=== PATIENT | female | born 1940 | race Caucasian/White ===

== ENCOUNTER → 2017-05-24 | Outpatient (CLI) | payer OTHER ==
[~2017-05-24] MED LIST: ASPI81CH PO; Albuterol2.5 MG/0.5 INH; CHOL10002; GLIP10ER PO; IRON150C PO; LOSA25 PO; METF500 PO; MONT10T PO; PIOG30 PO; RANI150 PO; SIMV40 PO; Zithromax250 MG PO
== END | disposition home or self-care (01) ==
LOC: PLD 11:24 → LAB SHORT 11:24
DX: D22.5 Melanocytic nevi of trunk (principal); L82.1 Other seborrheic keratosis
CPT/HCPCS: 88305

== ENCOUNTER → 2018-12-03 | Outpatient (CLI) | payer OTHER | END | disposition home or self-care (01) | LOC: PLD 12:12 → LAB SHORT 12:12 | DX: L81.4 Other melanin hyperpigmentation (principal); B88.9 Infestation, unspecified | CPT/HCPCS: 88305 ==

== ENCOUNTER → 2020-11-12 | Outpatient (CLI) | payer OTHER ==
[~2020-11-12] MED LIST changes: +IBUP600 PO; +Robaxin-750750 MG PO; +TRAM50 PO
[2020-11-12 16:35] LABS: Appearance, Urine Clear (Clear); Bilirubin, Urine Neg (Neg); Blood, Urine Neg (Neg); Color, Urine Yellow (P-Yellow); Creatinine, Urine Random 97.8 mg/dL (27.00-270.00); Glucose Qualitative, Urine Neg (Neg); Ketones, Urine Neg (Neg); Leukocyte Esterase, Urine 3+ (Neg); Nitrite, Urine Neg (Neg); Protein, Urine 2+ (Neg); Protein, Urine Random 47.3 mg/dL (0.0-11.9); Protein/Creat Ratio, Ur Random 0.5; Urobilinogen, Urine NORM (Normal)
[2020-11-12 18:18] LABS: Bacteria Mod /hpf; Red Blood Cells, Urine 0-2 /hpf (0-2); Squamous Epithelial Cells Few /hpf (Few)
== END ==
LOC: LAB SHORT 11:17
PROVIDERS: Internal Medicine
DX: N18.31 Chronic kidney disease, stage 3a (principal); Z91.013 Allergy to seafood
CPT/HCPCS: 81001; 82570; 84156

== ENCOUNTER 2021-11-11 07:08 | Day surgery (SDC) | payer OTHER ==
[~2021-11-11] VITALS: Ht 149.9 cm; Wt 72.7 kg
[~2021-11-11 07:08] MED LIST changes: +LORA10ER PO
[2021-11-11] MEDS ORDERED: ACET325 (07:41)
--- NOTE | 2021-11-11 07:47 | NUR ---
11/11/21 0747 Stephani Dewey AT 0734 PLEDGET AT 0719
== END 2021-11-11 09:20 | disposition home or self-care (01) ==
LOC: ORSCSDS 07:08
PROVIDERS: Ophthalmology
PROC: 08RK3JZ Replacement of Left Lens with Synthetic Substitute, Percutaneous Approach (ICD-10-PCS; principal; 2021-11-11 08:30)
DX: H25.12 Age-related nuclear cataract, left eye (principal); Z96.1 Presence of intraocular lens; Z87.891 Personal history of nicotine dependence; E11.22 Type 2 diabetes mellitus with diabetic chronic kidney disease; I12.9 Hypertensive chronic kidney disease with stage 1 through stage 4 chronic kidney disease, or unspecified chronic kidney disease; E11.36 Type 2 diabetes mellitus with diabetic cataract; N18.9 Chronic kidney disease, unspecified; E78.5 Hyperlipidemia, unspecified; Z86.73 Personal history of transient ischemic attack (TIA), and cerebral infarction without residual deficits; Z79.82 Long term (current) use of aspirin; Z79.84 Long term (current) use of oral hypoglycemic drugs; Z79.899 Other long term (current) drug therapy
CPT/HCPCS: 82947; J2001; J2250; J3010; J3301; J7040; V2632

== ENCOUNTER 2021-12-08 20:40 | Emergency (ER) | payer OTHER ==
[~2021-12-08] VITALS: Ht 149.9 cm; Wt 117.9 kg
[~2021-12-08 20:40] MED LIST changes: +ACET325
[2021-12-08 21:13] LABS: BASOPHILS ABSOLUTE AUTO 0.04 K/mm3 (0.00-0.23); BASOPHILS PERCENT AUTO 1 % (0-2); EOSINOPHILS ABSOLUTE AUTO 0.07 K/mm3 (0.00-0.68); EOSINOPHILS PERCENT AUTO 1 % (0-6); Hematocrit 31.7 % (33.0-51.0); Hemoglobin 10.1 g/dL (11.5-16.0); IMMATURE GRAN ABSOLUTE AUTO 0.01 K/mm3 (0.00-0.10); IMMATURE GRAN PERCENT AUTO 0 % (0-1); LYMPHOCYTES ABSOLUTE AUTO 2.01 K/mm3 (0.84-5.20); LYMPHOCYTES PERCENT AUTO 28 % (21-46); MONOCYTES ABSOLUTE AUTO 0.84 K/mm3 (0.16-1.47); MONOCYTES PERCENT AUTO 12 % (4-13); Mean Corpuscular HGB 29.1 pg (26.0-34.0); Mean Corpuscular HGB Conc 31.9 g/dL (31.5-36.5); Mean Corpuscular Volume 91 fL (80-100); Mean Platelet Volume 11.9 fL (9.1-12.4); NEUTROPHILS ABSOLUTE AUTO 4.26 K/mm3 (1.96-9.15); NEUTROPHILS PERCENT AUTO 59 % (41-73); Platelet Count 229 K/mm3 (150-400); RDW Coefficient Variation 13.1 % (11.7-14.2); RDW Standard Deviation 43.7 fL (35.1-46.3); Red Blood Cell Count 3.47 M/mm3 (3.80-5.20); White Blood Cell Count 7.23 K/mm3 (4.00-11.30)
[2021-12-08 21:36] LABS: Albumin, Blood 3.5 g/dL (3.4-5.0); Albumin/Globulin Ratio 0.9 (0.8-1.8); Bilirubin, Total 0.3 mg/dL (0.1-1.0); Bun/Creatinine Ratio 15.4 (12.0-20.0); Calcium, Blood 8.7 mg/dL (8.5-10.1); Creatinine, Blood 1.17 mg/dL (0.40-1.00); Globulin, Blood 3.8 g/dL (2.2-4.0); Potassium, Blood 4.3 mmol/L (3.5-5.5); Total Protein, Blood 7.3 g/dL (6.4-8.2)
[2021-12-09] MEDS ORDERED: FOSAMAX70 MG PO (16:30)
== END 2021-12-08 23:49 | disposition home or self-care (01) ==
LOC: ER 20:40
PROVIDERS: Emergency Medicine
DX: I10 Essential (primary) hypertension (principal); Z91.013 Allergy to seafood; Z79.899 Other long term (current) drug therapy; Z79.82 Long term (current) use of aspirin; Z79.84 Long term (current) use of oral hypoglycemic drugs; E11.9 Type 2 diabetes mellitus without complications; Z86.73 Personal history of transient ischemic attack (TIA), and cerebral infarction without residual deficits
CPT/HCPCS: 36415; 80053; 84484; 85025

== ENCOUNTER 2021-12-09 13:30 | Emergency (ER) | payer OTHER ==
[~2021-12-09] VITALS: Ht 149.9 cm; Wt 72.6 kg
[2021-12-09 14:12] LABS: BASOPHILS ABSOLUTE AUTO 0.02 K/mm3 (0.00-0.23); BASOPHILS PERCENT AUTO 0 % (0-2); EOSINOPHILS ABSOLUTE AUTO 0.04 K/mm3 (0.00-0.68); EOSINOPHILS PERCENT AUTO 1 % (0-6); Hemoglobin 10.2 g/dL (11.5-16.0); IMMATURE GRAN ABSOLUTE AUTO 0.01 K/mm3 (0.00-0.10); IMMATURE GRAN PERCENT AUTO 0 % (0-1); LYMPHOCYTES ABSOLUTE AUTO 1.67 K/mm3 (0.84-5.20); LYMPHOCYTES PERCENT AUTO 30 % (21-46); MONOCYTES ABSOLUTE AUTO 0.64 K/mm3 (0.16-1.47); MONOCYTES PERCENT AUTO 12 % (4-13); Mean Corpuscular HGB 28.8 pg (26.0-34.0); Mean Corpuscular HGB Conc 31.9 g/dL (31.5-36.5); Mean Corpuscular Volume 90 fL (80-100); Mean Platelet Volume 12.1 fL (9.1-12.4); NEUTROPHILS ABSOLUTE AUTO 3.17 K/mm3 (1.96-9.15); NEUTROPHILS PERCENT AUTO 57 % (41-73); Platelet Count 230 K/mm3 (150-400); RDW Coefficient Variation 12.9 % (11.7-14.2); RDW Standard Deviation 43.4 fL (35.1-46.3); Red Blood Cell Count 3.54 M/mm3 (3.80-5.20); White Blood Cell Count 5.55 K/mm3 (4.00-11.30)
[2021-12-09 14:34] LABS: Albumin, Blood 3.4 g/dL (3.4-5.0); Albumin/Globulin Ratio 0.9 (0.8-1.8); Bilirubin, Total 0.3 mg/dL (0.1-1.0); Bun/Creatinine Ratio 13.3 (12.0-20.0); Creatinine, Blood 0.98 mg/dL (0.40-1.00); Globulin, Blood 3.7 g/dL (2.2-4.0); Potassium, Blood 4.2 mmol/L (3.5-5.5); Total Protein, Blood 7.1 g/dL (6.4-8.2)
[2021-12-09] MEDS ORDERED: FOSAMAX70 MG PO (16:30)
== END 2021-12-09 19:39 | disposition home or self-care (01) ==
LOC: ER 13:30
PROVIDERS: Physician Assistant
DX: I10 Essential (primary) hypertension (principal); E11.9 Type 2 diabetes mellitus without complications; Z79.899 Other long term (current) drug therapy; Z79.82 Long term (current) use of aspirin; Z79.84 Long term (current) use of oral hypoglycemic drugs; Z91.013 Allergy to seafood; Z87.891 Personal history of nicotine dependence
CPT/HCPCS: 36415; 70496; 70498; 71046; 80053; 84484; 85025; 93005; 93010; Q9967

== ENCOUNTER → 2022-03-10 | Outpatient (CLI) | payer OTHER ==
[~2022-03-10] MED LIST changes: +FOSAMAX70 MG PO
== END ==
LOC: LAB SHORT 10:07 → LAB 10:07 → PLD 10:07
DX: D48.5 Neoplasm of uncertain behavior of skin (principal)
CPT/HCPCS: 88305

== ENCOUNTER → 2022-07-06 | Outpatient (CLI) | payer OTHER | LOC: LAB 11:19 → LAB SHORT 11:19 → PLD 11:19 | DX: D48.5 Neoplasm of uncertain behavior of skin (principal) | CPT/HCPCS: 88305 ==

== ENCOUNTER 2024-11-10 00:48 | Emergency (ER) | payer OTHER ==
[~2024-11-10] VITALS: Ht 172.7 cm; Wt 90.7 kg
[2024-11-10] MEDS ORDERED: Ketorolac Tromethamine 15mg Vial IV ONE (04:00)
[2024-11-10 04:31] LABS: BASOPHILS ABSOLUTE AUTO 0.03 K/mm3 (0.00-0.23); BASOPHILS PERCENT AUTO 0 % (0-2); EOSINOPHILS ABSOLUTE AUTO 0.00 K/mm3 (0.00-0.68); EOSINOPHILS PERCENT AUTO 0 % (0-6); Hematocrit 32.2 % (33.0-51.0); Hemoglobin 10.5 g/dL (11.5-16.0); IMMATURE GRAN ABSOLUTE AUTO 0.02 K/mm3 (0.00-0.10); IMMATURE GRAN PERCENT AUTO 0 % (0-1); LYMPHOCYTES ABSOLUTE AUTO 0.57 K/mm3 (0.84-5.20); LYMPHOCYTES PERCENT AUTO 7 % (21-46); MONOCYTES ABSOLUTE AUTO 0.51 K/mm3 (0.16-1.47); MONOCYTES PERCENT AUTO 6 % (4-13); Mean Corpuscular HGB Conc 32.6 g/dL (31.5-36.5); Mean Corpuscular Volume 87 fL (80-100); NEUTROPHILS ABSOLUTE AUTO 7.25 K/mm3 (1.96-9.15); NEUTROPHILS PERCENT AUTO 87 % (41-73); NRBC ABSOLUTE 0.00 K/mm3 (0.00-0.02); NRBC Auto 0.0 /100 WBC (0.0-0.2); Platelet Count 207 K/mm3 (150-400); RDW Coefficient Variation 13.0 % (11.7-14.2); RDW Standard Deviation 41.2 fL (35.1-46.3)
[2024-11-10 04:49] LABS: Alanine Aminotransfer (ALT/SGP 15.0 U/L (12-78); Albumin, Blood 3.6 g/dL (3.4-5.0); Albumin/Globulin Ratio 0.8 (0.8-1.8); Anion Gap 11.0 mmol/L (3-11); Aspartate Aminotrans (AST/SGOT 19.0 U/L (12-37); Bilirubin, Total 0.5 mg/dL (0.1-1.0); Blood Urea Nitrogen 18.0 mg/dL (8-24); CO2, Blood 24.0 mmol/L (21-32); Calcium, Blood 8.8 mg/dL (8.5-10.1); Chloride, Blood 103.0 mmol/L (98-108); Creatinine, Blood 1.56 mg/dL (0.40-1.00); Globulin, Blood 4.5 g/dL (2.2-4.0); Glucose, Blood 241.0 mg/dL (70-99); Potassium, Blood 3.5 mmol/L (3.5-5.5); Sodium, Blood 134.0 mmol/L (136-145); Total Protein, Blood 8.1 g/dL (6.4-8.2)
[2024-11-10 07:50] LABS: Source, Urine Clean Catch
[2024-11-10 07:54] LABS: Bilirubin, Urine Neg (Neg); Color, Urine Yellow (P-Yellow); Glucose Qualitative, Urine Neg (Neg); Ketones, Urine Neg (Neg); Leukocyte Esterase, Urine 1+ (Neg); Protein, Urine 4+ (Neg); Specific Gravity, Urine 1.020 (1.003-1.022); Urobilinogen, Urine NORM (Normal)
[2024-11-10] MEDS ORDERED: Methyl Salicylate/Menth/Camph 57 GM TUBE EXT ONE (08:40)
[2024-11-10 10:15] VITALS: BP 139/66
[2024-11-10] MEDS ORDERED: GABA300 PO (10:33)
[2024-11-10] MEDS ORDERED: CEFD300 PO (10:33)
== END 2024-11-10 10:53 | disposition home or self-care (01) ==
LOC: ER 00:48
PROVIDERS: Emergency Medicine
DX: S50.311A Abrasion of right elbow, initial encounter (principal); M54.42 Lumbago with sciatica, left side; N39.0 Urinary tract infection, site not specified; E11.9 Type 2 diabetes mellitus without complications; W01.0XXA Fall on same level from slipping, tripping and stumbling without subsequent striking against object, initial encounter; Z87.891 Personal history of nicotine dependence; Z86.73 Personal history of transient ischemic attack (TIA), and cerebral infarction without residual deficits; Z79.82 Long term (current) use of aspirin; Z79.84 Long term (current) use of oral hypoglycemic drugs; Z79.899 Other long term (current) drug therapy; Z91.013 Allergy to seafood
CPT/HCPCS: 74176; 80053; 81001; 83605; 85025; 87077; 87086; 87147; 87186; 96374; 99284-25; A9270; J1885

== ENCOUNTER 2024-11-22 04:17 | Emergency (ER) | payer OTHER ==
[~2024-11-22] VITALS: Ht 157.5 cm; Wt 77.1 kg
[~2024-11-22 04:17] MED LIST changes: +CEFD300 PO; +GABA300 PO
[2024-11-22 04:30] VITALS: BP 164/75
[2024-11-22] MEDS ORDERED: VALIUM PO (04:50)
== END 2024-11-22 05:00 | disposition home or self-care (01) ==
LOC: ER 04:17
DX: M54.32 Sciatica, left side (principal); I10 Essential (primary) hypertension; E11.9 Type 2 diabetes mellitus without complications; Z87.891 Personal history of nicotine dependence; Z59.89 Other problems related to housing and economic circumstances
CPT/HCPCS: 99283; A9270